=== PATIENT | female | born 1945 | race Caucasian/White ===

== ENCOUNTER → 2023-07-30 12:45 | Outpatient (REF) | payer MEDICARE, SELFPAY ==
[2023-07-30 16:10] LABS: ALT (SGPT) 13 U/L (0-35); AST (SGOT) 23 U/L (14-36); Albumin 3.8 g/dl (3.5-5.0); Alkaline Phosphatase 79 U/L (38-126); Blood Urea Nitrogen 16 mg/dl (7-17); Calcium 9.5 mg/dl (8.4-10.2); Carbon Dioxide 25 mmol/L (22-30); Chloride 100 mmol/L (98-107); Glucose 89 mg/dl (70-99); Potassium 4.6 mmol/L (3.5-5.1); Sodium 131 mmol/L (135-145); Total Bilirubin 0.4 mg/dl (0.2-1.3); Total Protein 6.7 g/dl (6.3-8.2); eGFR > 60.00
== END ==
LOC: HWRAD 12:45
PROVIDERS: ATTENDING PHYSICIAN Internal Medicine
DX: Z78.0 Asymptomatic menopausal state (principal); Z12.31 Encounter for screening mammogram for malignant neoplasm of breast; E03.9 Hypothyroidism, unspecified; G45.9 Transient cerebral ischemic attack, unspecified; E78.2 Mixed hyperlipidemia
CPT/HCPCS: 36415; 77063; 77067; 77080; 80053

== ENCOUNTER → 2023-10-23 06:33 | Day surgery (SDC) | payer MEDICARE, SELFPAY | LOC: GI 06:33 | PROVIDERS: ATTENDING PHYSICIAN Internal Medicine | DX: Z12.11 Encounter for screening for malignant neoplasm of colon (principal); K57.30 Diverticulosis of large intestine without perforation or abscess without bleeding; K64.8 Other hemorrhoids; Z86.010 Personal history of colon polyps | CPT/HCPCS: G0105 ==

== ENCOUNTER → 2024-06-20 13:18 | Outpatient (REF) | payer MEDICARE, SELFPAY | LOC: HWRAD 13:18 | PROVIDERS: ATTENDING PHYSICIAN Obstetrics & Gynecology; FAMILY PHYSICIAN Internal Medicine | DX: N95.0 Postmenopausal bleeding (principal) | CPT/HCPCS: 76830; 76856 ==

== ENCOUNTER → 2024-07-09 13:17 | Outpatient (REF) | payer MEDICARE, SELFPAY | LOC: HWWDC 13:17 | PROVIDERS: ATTENDING PHYSICIAN Internal Medicine | DX: Z12.31 Encounter for screening mammogram for malignant neoplasm of breast (principal) | CPT/HCPCS: 77063; 77067 ==

== ENCOUNTER → 2024-10-28 14:30 | Outpatient (REF) | payer MEDICARE, SELFPAY ==
[2024-10-28 15:19] LABS: Hematocrit 29.6 % (37.0-47.0); Hemoglobin 9.1 g/dL (12.0-16.0); Mean Corp Hgb Conc. 30.7 g/dL (33.0-37.0); Mean Corpuscular Volume 66.8 fL (81.0-99.0); Nucleated Red Blood Cells % 0.3 %; Platelet Count 320 10^3/uL (130-400); Red Cell Dist. Width 17.0 % (11.5-14.5)
[2024-10-28 15:45] LABS: Iron 39 ug/dl (37-170)
[2024-10-28 15:55] LABS: Total Iron Binding Capacity 432 ug/dl (265-497)
[2024-10-28 16:21] LABS: Ferritin 7.0 ng/ml (11.1-264.0)
== END ==
LOC: REG 14:30
PROVIDERS: ATTENDING PHYSICIAN Internal Medicine
DX: R62.7 Adult failure to thrive (principal); D64.9 Anemia, unspecified
CPT/HCPCS: 36415; 82728; 83540; 83550; 85025

== ENCOUNTER → 2025-01-09 12:59 | Outpatient (REF) | payer MEDICARE, SELFPAY ==
[2025-01-09 14:41] LABS: Hematocrit 37.3 % (37.0-47.0); Hemoglobin 11.7 g/dL (12.0-16.0); Mean Corp Hgb Conc. 31.4 g/dL (33.0-37.0); Mean Corpuscular Volume 73.9 fL (81.0-99.0); Nucleated Red Blood Cells % 0 %; Platelet Count 242 10^3/uL (130-400); Red Cell Dist. Width 25.6 % (11.5-14.5)
[2025-01-09 15:36] LABS: Iron 86 ug/dl (37-170)
[2025-01-09 15:45] LABS: Total Iron Binding Capacity 319 ug/dl (265-497)
[2025-01-09 16:13] LABS: Ferritin 185.0 ng/ml (11.1-264.0)
== END ==
LOC: REG 12:59
PROVIDERS: ATTENDING PHYSICIAN Internal Medicine Hematology & Oncology; FAMILY PHYSICIAN Internal Medicine
DX: D50.9 Iron deficiency anemia, unspecified (principal)
CPT/HCPCS: 36415; 82728; 83540; 83550; 85025

== ENCOUNTER 2025-01-29 10:25 | Emergency (ER) | payer MEDICARE, SELFPAY ==
[2025-01-29 10:37] VITALS: BP 180/110
[2025-01-29 11:26] VITALS: BP 134/79
--- NOTE | 2025-01-29 12:31 | ED.GENMED ---
History of Present Illness
General
Chief Complaint: Sleep Disturbances
Time Seen by Provider: 01/29/25 11:31
History of Present Illness
History of Present Illness:
79-year-old female with history of bipolar disorder presenting to the emergency department for concern of manic episode. Patient arrives with daughter who notes that she has been manic for about the past month, however has been worsening. Patient
has not been sleeping. She saw her therapist 2 weeks ago and her sertraline was cut in half, and her other medication was increased. However the adjustments do not seem to working. Patient has had increased paranoia. Patient herself denies any
acute medical complaints as chest pain, difficulty breathing, abdominal pain, fever, or additional acute medical complaints
Past History
Past History
ED Past Medical History: Hypercholesterolemia, Hypothyroidism and Psychiatric (bipolar, A/D)
Phy Exam
Physical Exam
Physical Exam:
General: Well-appearing, no clinical signs of dehydration, nontoxic and in no acute distress
HEENT: protecting airway
Neck: appears supple
CV: Normal heart rate
Resp: No accessory muscle use, no increased work of breathing
Abd: No distention
Extremities: No deformities, no swelling
Neuro: alert, no focal neurologic deficit
: deferred
Rectal: deferred
Psych: Pleasant, however restless, stuttering
Skin: Intact
Course
Orders/Labs/Results
Orders:
Orders
01/29/25 12:09
Crisis Consult Urgent
Reason for Consult: uziel
01/29/25 12:18
Complete Blood Count/With Diff Urgent
Comprehensive Metabolic Panel Urgent
01/29/25 13:18
Urinalysis Reflex To Culture Urgent
Date Specimen was Collected: 01/29/25
Time Specimen was Collected: 13:17
Urine Drug Abuse Screen Urgent
Date Specimen was Collected: 01/29/25
Time Specimen was Collected: 13:17
Abnormal Lab Results
01/29/25
12:18
MCV 78.4 L fL
(81.0-99.0)
MCH 24.2 L pg
(27.0-31.0)
MCHC 30.8 L g/dL
(33.0-37.0)
Absolute Monos (auto) 0.9 H 10^3/uL
(0.1-0.6)
Monocytes % 12.5 H %
(1.7-9.3)
Sodium 132 L mmol/L
(135-145)
BUN 18 H mg/dl
(7-17)
Glucose 102 H mg/dl
(70-99)
01/29/25 12:18
01/29/25 12:18
Vital Signs
Initial and Last Documented VS:
Initial Vital Signs
Temp Pulse Resp BP Pulse Ox
99.1 F 108 16 180/110 96
01/29/25 10:37 01/29/25 10:37 01/29/25 10:37 01/29/25 10:37 01/29/25 10:37
Last Documented Vital Signs
Temp Pulse Resp BP Pulse Ox
99.1 F 89 16 136/79 98
01/29/25 10:37 01/29/25 14:03 01/29/25 14:03 01/29/25 14:03 01/29/25 14:03
MDM/Problems Addressed
MDM/Problems Addressed:
79-year-old female with history of bipolar disorder presenting for concern of acute uziel. Vital signs are significant for high blood pressure, however resolved without intervention.
On exam patient is resting comfortably, cooperative, calm. However she has restless, with stuttering, which daughter notes is consistent with her uziel. Patient otherwise denies acute medical complaints. Will screen with laboratory analysis and
consult with crisis. Daughter notes that she has had to go inpatient when this has happened in the past. Patient is agreeable to inpatient stay if necessary.
14:00 -patient seen by crisis and excepted to [facility].
*Pulse Oximetry
SaO2: 96
Oxygen Mode of Delivery: Room air
Patient hypoxic: no
*Critical Care Note
Total Time (30-74mins, 75-104mins- exclusive of procedures): Not Applicable
ED Attending Note
-
Portions of this chart may have been created with voice recognition software.� Occasional wrong word or��sound alike� substitutions may have occurred due to the inherent limitations of voice recognition software.
Discharge Plan
Departure
Patient Disposition: Psych Facility
Date of Disposition: 01/29/25
Time of Disposition: 14:05
Patient with high blood pressure during this ER visit?: Yes
Condition: Good
Discharge Problem:
Bipolar affective disorder, Manic episode
Instructions: BLOOD PRESSURE
Prescriptions:
No Action
atorvastatin 20 MG tablet
20 mg PO Q48H
alendronate 70 MG tablet
70 mg PO SA
levothyroxine 88 MCG tablet
88 mcg PO DAILY
multivitamin with folic acid [Tab-A-Rich] 1 TABLET tablet
1 tab PO DAILY
vit C,G-Kb-fgezk-lutein-zeaxan [PreserVision AREDS-2] 1 EACH capsule
1 ea PO DAILY
olanzapine 5 MG tablet
5 mg PO HS 0RF
thiamine HCl (vitamin B1) 100 MG tablet
100 mg PO DAILY 0RF
folic acid 0.4 MG tablet
0.4 mg PO DAILY 0RF
Referrals:
Horace Spann I., DO [Family Provider, Internal Medicine]
Activity Restrictions/Additional Instructions:
You were seen in the emergency department for concern of uziel
Were seen by crisis and you are going to a facility at [facility]. Please go directly to the facility
Return to the emergency department for any worsening of your symptoms, or any development of chest pain, difficulty breathing, abdominal pain with persistent vomiting and inability to tolerate food or liquid by mouth (concern for dehydration),
weakness, headache or confusion, fever greater than 100.4, or any additional symptoms that are concerning to you.
Thank you for choosing [facility].
Interventions
Interventions:
*Risk Screen - Suicide Last Done: 01/29/25 10:37
*General Assessment Last Done: 01/29/25 11:22
*Neglect/Abuse Screening Last Done: 01/29/25 10:37
*ED- Fall Risk Assessment Last Done: 01/29/25 11:22
*ED COVID-19 Vaccine History Last Done: 01/29/25 11:22
*ED Influenza Vaccine History Last Done: 01/29/25 11:22
ED-Suicide Risk Assessment Last Done: 01/29/25 11:23
ED- Neurological Assessment Last Done: 01/29/25 11:23
ED-Psychological Assessment Last Done: 01/29/25 11:23
Discharge Date and Time
Print Language: PERSIAN
[2025-01-29 12:48] LABS: ALT (SGPT) 13 U/L (0-35); AST (SGOT) 23 U/L (14-36); Albumin 4.5 g/dl (3.5-5.0); Alkaline Phosphatase 111 U/L (38-126); Blood Urea Nitrogen 18 mg/dl (7-17); Calcium 9.7 mg/dl (8.4-10.2); Carbon Dioxide 24 mmol/L (22-30); Chloride 100 mmol/L (98-107); Glucose 102 mg/dl (70-99); Potassium 4.5 mmol/L (3.5-5.1); Sodium 132 mmol/L (135-145); Total Protein 7.8 g/dl (6.3-8.2); eGFR > 60.00
[2025-01-29 12:50] LABS: Hematocrit 41.5 % (37.0-47.0); Hemoglobin 12.8 g/dL (12.0-16.0); Mean Corp Hgb Conc. 30.8 g/dL (33.0-37.0); Mean Corpuscular Volume 78.4 fL (81.0-99.0); Platelet Count 221 10^3/uL (130-400)
[2025-01-29 13:39] LABS: Urine Character Clear (Clear)
[2025-01-29 14:03] VITALS: BP 136/79
[2025-01-29 14:42] LABS: Anisocytosis 1+; Hypochromasia 1+; Ovalocytes 1+; Poikilocytosis 1+
[2025-01-29 14:43] LABS: Normal RBC Morphology No
[2025-01-29 14:57] LABS: Nucleated Red Blood Cells % 0 %
== END 2025-01-29 15:47 ==
LOC: EMR 10:25
PROVIDERS: EMERGENCY PHYSICIAN Student in an Organized Health Care Education/Training Program; FAMILY PHYSICIAN Internal Medicine
DX: F31.9 Bipolar disorder, unspecified (principal); R03.0 Elevated blood-pressure reading, without diagnosis of hypertension; E78.00 Pure hypercholesterolemia, unspecified; E03.9 Hypothyroidism, unspecified
CPT/HCPCS: 99283; 80053; 80306; 81003; 85025